=== PATIENT | male | born 1955 | race Caucasian/White ===

== ENCOUNTER → 2020-03-31 | Outpatient (CLI) | payer MEDICARE, OTHER ==
[~2020-03-31] VITALS: Ht 182.9 cm; Wt 98.0 kg
[2020-03-31 14:09] LABS: HEMOGLOBIN 14.9 gm/dl (14.0-17.5); RED BLOOD COUNT 5.08 M/UL (4.20-5.50); WHITE BLOOD COUNT 7.1 K/UL (4.5-11.0)
[2020-03-31 14:29] LABS: BUN/CREATININE RATIO 15 (0-10)
== END ==
LOC: OPSV 13:47
PROVIDERS: Internal Medicine Gastroenterology
DX: K51.90 Ulcerative colitis, unspecified, without complications (principal); R51.9 Headache, unspecified; R19.7 Diarrhea, unspecified; K92.1 Melena; G93.9 Disorder of brain, unspecified
CPT/HCPCS: 80053; 85025; 86140; 96365; J3380; J7050

== ENCOUNTER → 2020-05-26 | Outpatient (CLI) | payer MEDICARE, OTHER ==
[~2020-05-26] VITALS: Ht 182.9 cm; Wt 98.0 kg
[2020-05-26 10:55] LABS: HEMOGLOBIN 14.7 gm/dl (14.0-17.5); RED BLOOD COUNT 5.05 M/UL (4.20-5.50); WHITE BLOOD COUNT 5.3 K/UL (4.5-11.0)
[2020-05-26 11:15] LABS: BUN/CREATININE RATIO 13 (0-10)
== END ==
LOC: OPSV 09:46
PROVIDERS: Internal Medicine Gastroenterology
DX: K51.90 Ulcerative colitis, unspecified, without complications (principal)
CPT/HCPCS: 36415; 80053; 85025; 86140; 96365; J3380; J7050

== ENCOUNTER → 2020-07-24 | Outpatient (CLI) | payer MEDICARE, OTHER ==
[~2020-07-24] VITALS: Ht 182.9 cm; Wt 98.0 kg
[2020-07-24 11:54] LABS: HEMOGLOBIN 15.6 gm/dl (14.0-17.5); RED BLOOD COUNT 5.25 M/UL (4.20-5.50); WHITE BLOOD COUNT 7.7 K/UL (4.5-11.0)
[2020-07-24 12:13] LABS: BUN/CREATININE RATIO 19 (0-10)
== END ==
LOC: OPSV 07-21 09:00
PROVIDERS: Internal Medicine Gastroenterology
DX: K51.90 Ulcerative colitis, unspecified, without complications (principal); R51.9 Headache, unspecified; R19.7 Diarrhea, unspecified; K92.1 Melena
CPT/HCPCS: 80053; 85025; 86140; 96365; J3380; J7050

== ENCOUNTER → 2020-09-18 | Outpatient (CLI) | payer MEDICARE, OTHER ==
[~2020-09-18] VITALS: Ht 182.9 cm; Wt 98.0 kg
[2020-09-18 10:34] LABS: HEMOGLOBIN 15.8 gm/dl (14.0-17.5); RED BLOOD COUNT 5.21 M/UL (4.20-5.50); WHITE BLOOD COUNT 6.1 K/UL (4.5-11.0)
[2020-09-18 11:30] LABS: BUN/CREATININE RATIO 12 (0-10)
== END ==
LOC: OPSV 10:00
PROVIDERS: Internal Medicine Gastroenterology
DX: K51.90 Ulcerative colitis, unspecified, without complications (principal)
CPT/HCPCS: 36415; 80053; 85025; 86140; 96365; J3380; J7050

== ENCOUNTER → 2020-11-13 | Outpatient (CLI) | payer MEDICARE, OTHER ==
[~2020-11-13] VITALS: Ht 182.9 cm; Wt 98.0 kg
[2020-11-13 10:25] LABS: HEMOGLOBIN 15.1 gm/dl (14.0-17.5); RED BLOOD COUNT 5.22 M/UL (4.20-5.50); WHITE BLOOD COUNT 5.9 K/UL (4.5-11.0)
[2020-11-13 10:49] LABS: BUN/CREATININE RATIO 14 (0-10)
== END ==
LOC: OPSV 09:53
PROVIDERS: Internal Medicine Gastroenterology
DX: K51.90 Ulcerative colitis, unspecified, without complications (principal); R51.9 Headache, unspecified; G93.9 Disorder of brain, unspecified
CPT/HCPCS: 36415; 80053; 85025; 86140; 96365; J3380; J7050

== ENCOUNTER → 2021-01-08 | Outpatient (CLI) | payer MEDICARE, OTHER ==
[2021-01-08 11:03] LABS: HEMOGLOBIN 14.8 gm/dl (14.0-17.5); RED BLOOD COUNT 5.04 M/UL (4.20-5.50); WHITE BLOOD COUNT 6.5 K/UL (4.5-11.0)
[2021-01-08 11:41] LABS: BUN/CREATININE RATIO 11 (0-10)
[2021-01-13 12:13] LABS: QUANTIFERON MITOGEN VALUE >10.00 IU/mL (.); QUANTIFERON NIL VALUE 0.03 IU/mL (.); QUANTIFERON TB1 AG VALUE 0.04 IU/mL (.); QUANTIFERON TB2 AG VALUE 0.05 IU/mL (.); QUANTIFERON-TB GOLD PLUS Negative (Negative)
== END ==
LOC: OPSV 10:00
PROVIDERS: Internal Medicine Gastroenterology
DX: K51.50 Left sided colitis without complications (principal)
CPT/HCPCS: 36415; 80053; 85025; 86140; 96365; J3380; J7030

== ENCOUNTER → 2021-03-05 | Outpatient (CLI) | payer MEDICARE, OTHER ==
[~2021-03-05] VITALS: Ht 182.9 cm; Wt 98.0 kg
[2021-03-05 11:03] LABS: HEMOGLOBIN 15.1 gm/dl (14.0-17.5); RED BLOOD COUNT 5.18 M/UL (4.20-5.50); WHITE BLOOD COUNT 6.1 K/UL (4.5-11.0)
[2021-03-05 11:28] LABS: BUN/CREATININE RATIO 10 (0-10)
== END ==
LOC: OPSV 09:44
PROVIDERS: Internal Medicine Gastroenterology
DX: K51.50 Left sided colitis without complications (principal)
CPT/HCPCS: 36415; 80053; 85025; 86140; 96365; J3380; J7030

== ENCOUNTER → 2021-04-12 | Outpatient (CLI) | payer MEDICARE, OTHER | LOC: LBRF 09:26 | DX: K51.50 Left sided colitis without complications (principal) | CPT/HCPCS: 83993 ==

== ENCOUNTER → 2021-06-25 | Outpatient (CLI) | payer MEDICARE, OTHER ==
[~2021-06-25] VITALS: Ht 182.9 cm; Wt 98.0 kg
[2021-06-25 10:44] LABS: HEMOGLOBIN 14.8 gm/dl (14.0-17.5); RED BLOOD COUNT 5.02 M/UL (4.20-5.50); WHITE BLOOD COUNT 5.4 K/UL (4.5-11.0)
[2021-06-25 11:11] LABS: BUN/CREATININE RATIO 12 (0-10)
== END ==
LOC: OPSV 10:00
PROVIDERS: Internal Medicine Gastroenterology
DX: K51.50 Left sided colitis without complications (principal)
CPT/HCPCS: 80053; 85025; 86140; 96365; J3380; J7050

== ENCOUNTER → 2021-08-20 | Outpatient (CLI) | payer MEDICARE, OTHER ==
[2021-08-20 10:56] LABS: HEMOGLOBIN 14.8 gm/dl (14.0-17.5); RED BLOOD COUNT 5.11 M/UL (4.20-5.50); WHITE BLOOD COUNT 5.7 K/UL (4.5-11.0)
[2021-08-20 11:43] LABS: BUN/CREATININE RATIO 11 (0-10)
== END ==
LOC: OPSV 10:00
PROVIDERS: Internal Medicine Gastroenterology
DX: K51.50 Left sided colitis without complications (principal)
CPT/HCPCS: 80053; 85025; 86140; 96365; J3380; J7050

== ENCOUNTER → 2021-10-15 | Outpatient (CLI) | payer MEDICARE, OTHER ==
[~2021-10-15] VITALS: Ht 182.9 cm; Wt 98.0 kg
[2021-10-15 10:30] LABS: HEMOGLOBIN 15.1 gm/dl (14.0-17.5); RED BLOOD COUNT 5.14 M/UL (4.20-5.50); WHITE BLOOD COUNT 5.8 K/UL (4.5-11.0)
[2021-10-15 11:51] LABS: BUN/CREATININE RATIO 14 (0-10)
== END ==
LOC: OPSV 09:55
PROVIDERS: Internal Medicine Gastroenterology
DX: K51.50 Left sided colitis without complications (principal)
CPT/HCPCS: 80053; 85025; 86140; 96365; J3380; J7030